=== PATIENT | female | born 1965 | race African-American/Black ===

== ENCOUNTER 2017-05-20 13:24 | Outpatient (CLI) | payer MEDICARE, MEDICAID ==
--- NOTE | 2017-05-20 15:34 | MMO ---
BILATERAL DIGITAL SCREENING MAMMOGRAMS: HISTORY: A 52-year-old female who presents for baseline digital screening mammography. No prior films are available for comparison. FINDINGS: Scattered areas of fibroglandular density are noted bilaterally. No direct or indirect evidence of m alignancy. Occasional typically benign calcifications are noted. IMPRESSION: BI-RADS category 2, benign findings. Continued routine screening. POS: [facility]
== END 2017-05-20 13:25 | disposition home or self-care (01) ==
LOC: MAMMO 13:24 → SCSMAMMO 13:25
PROVIDERS: ATTEND Family Medicine
DX: Z12.31 Encounter for screening mammogram for malignant neoplasm of breast (principal)
CPT/HCPCS: 77067; G0202

== ENCOUNTER 2018-01-27 14:43 | Outpatient (CLI) | payer MEDICARE, OTHER, MEDICAID ==
--- NOTE | 2018-01-27 15:51 | RAD ---
CHEST TWO VIEWS: Date: 01-27-18 Comparison: 12-19-15 History: Shortness of breath FINDINGS: No pneumothorax or pleural fluid. No focal consolidation or alveolar edema. Heart and mediastinal con tours are stable. IMPRESSION: No acute findings. POS: [facility]
== END 2018-01-27 14:44 | disposition home or self-care (01) ==
LOC: RAD 14:43
PROVIDERS: ATTEND Internal Medicine Pulmonary Disease
DX: R06.00 Dyspnea, unspecified (principal)
CPT/HCPCS: 71046

== ENCOUNTER 2019-06-25 13:49 | Outpatient (CLI) | payer MEDICARE, MEDICAID ==
--- NOTE | 2019-06-25 14:54 | MMO ---
Bilateral MAMMO Bilat Diag [facility]. CLINICAL HISTORY: Patient is 54 years old and is seen for diagnostic exam. The patient has no family history of breast cancer. The patient has no personal history of cancer. VIEWS: The views performed were: bilateral craniocaudal with tomosynthesis; bilateral mediolateral oblique with tomosynthesis; and bilateral mediolateral with tomosynthesis. FILMS COMPARED: The present examination has been compared to prior imaging studies performed at [facility] on 05/20/2017 and 06/25/2019. This study has been interpreted with the assistance of computer-aided detection. MAMMOGRAM FINDINGS: There are scattered fibroglandular densities. There is a focal asymmetry seen in the upper-inner region of the left breast. This corresponds to the palpable finding, by history the site of prior abscess status post drainage. The sonographic appearance of this process suggests phlegmon/granulation tissue. In the right breast, there are no suspicious masses, calcifications or areas of architectural distortion. IMPRESSION: FOCAL ASYMMETRY IN THE LEFT BREAST IS PROBABLY BENIGN. 6-8 WEEK FOLLOW UP ULTRASOUND RECOMMENDED. THE RESULTS OF THIS EXAM WERE SENT TO THE PATIENT. ACR BI-RADS Category 3 - Probably benign finding - short interval follow-up suggested. [facility] will notify the patient of the need for additional imaging services. MAMMOGRAPHY NOTE: 1. A negative mammogram report should not delay a biopsy if a dominant of clinically suspicious mass is present. 2. Approximately 10% to 15% of breast cancers are not detected by mammography. 3. Adenosis and dense breasts may obscure an underlying neoplasm. Reported by: MARY MACKEY MD Electonically Signed: [id number]
--- NOTE | 2019-06-25 14:58 | ULT ---
LIMITED LEFT BREAST ULTRASOUND: DATE: 06/25/2019. PROVIDED CLINICAL HISTORY: Left breast palpable abnormality in region of prior mastitis with abscess status post drainage. FINDINGS: Limited sonographic interrogation of the left breast was performed in the 12 o'clock position in the region of palpable concern. There is a somewhat focal area of altered echogenicity within the soft t issues in the region of palpable concern somewhat superficially. This measures about 3.4 x 0.9 cm in transverse x AP dimensions. This does not demonstrate sonographic features typical for a solid proc ess. There is no internal flow. There is no true fluid echogenicity. IMPRESSION: Sonographic abnormality in the region of palpable concern presumably reflects residual phlegmon/granu lation tissue related to prior breast abscess. A 6-8 week followup ultrasound is recommended to eval uate for expected resolution. POS: [facility]
== END 2019-06-25 13:50 | disposition home or self-care (01) ==
LOC: BICULT 13:49
PROVIDERS: ATTEND Physician Assistant Medical
DX: N60.02 Solitary cyst of left breast (principal); R22.9 Localized swelling, mass and lump, unspecified; R92.8 Other abnormal and inconclusive findings on diagnostic imaging of breast; N64.89 Other specified disorders of breast
CPT/HCPCS: 76642; 77066; G0279

== ENCOUNTER 2019-08-18 15:46 | Outpatient (CLI) | payer MEDICARE, MEDICAID ==
--- NOTE | 2019-08-18 16:34 | ULT ---
LIMITED LEFT BREAST ULTRASOUND: 08/18/19 PROVIDED CLINICAL HISTORY: Follow-up ultrasound. FINDINGS: Limited sonographic interrogation is performed at the 12 o'clock position of the left breast in the r egion of prior ultrasound concern. There is interval decrease in the altered echogenicity present wi thin the subcutaneous adipose layer of the left breast at the 12 o'clock position. This now measures about 3 cm in greatest dimension as compared to about 3.5 cm on prior. This appears to be within the skin/subcutaneous adipose layer and not within the breast parenchyma. No drainable abscess collection is evident. IMPRESSION: Interval decrease in size of sonographic abnormality in the region of palpable concern. This could re flect a chronic infectious process. Given the lack of resolution, surgical consultation is recommende d. POS: [facility]
== END 2019-08-18 15:47 | disposition home or self-care (01) ==
LOC: BICULT 15:46
PROVIDERS: ATTEND Physician Assistant Medical
DX: R92.8 Other abnormal and inconclusive findings on diagnostic imaging of breast (principal)

== ENCOUNTER 2020-11-14 16:31 | Emergency (ER) | payer MEDICARE, OTHER | END 2020-11-14 18:00 | disposition home or self-care (01) | LOC: ERS 16:31 | DX: U07.1 COVID-19 (principal); H92.02 Otalgia, left ear; I10 Essential (primary) hypertension; J45.909 Unspecified asthma, uncomplicated; Z79.899 Other long term (current) drug therapy | CPT/HCPCS: 99283 ==

== ENCOUNTER 2022-01-25 12:45 | Emergency (ER) | payer OTHER, MEDICARE | END 2022-01-25 14:00 | disposition home or self-care (01) | LOC: ERS 12:45 | DX: H66.92 Otitis media, unspecified, left ear (principal); J45.909 Unspecified asthma, uncomplicated; I10 Essential (primary) hypertension; Z79.899 Other long term (current) drug therapy | CPT/HCPCS: 99282 ==

== ENCOUNTER 2022-04-23 15:41 | Emergency (ER) | payer OTHER ==
[2022-04-23] MEDS ORDERED: Amlodipine 5 MG TAB ONE (17:24)
== END 2022-04-23 18:16 | disposition home or self-care (01) ==
LOC: ERS 15:41
DX: I10 Essential (primary) hypertension (principal); E78.00 Pure hypercholesterolemia, unspecified; Z79.899 Other long term (current) drug therapy
CPT/HCPCS: 93005